=== PATIENT | male | born 1985 | race Two or more races ===

== ENCOUNTER 2018-09-13 17:16 | Emergency (ER) | payer OTHER ==
[~2018-09-13] VITALS: Ht 167.6 cm; Wt 115.7 kg
[~2018-09-13 17:16] MED LIST: AUGMENTIN 875-1 EAC1 ORAL; IBUPROFEN600 MG ORAL
[2018-09-13] MEDS ORDERED: IBUPROFEN800 MG ORAL (17:58)
[2018-09-13] MEDS ORDERED: ROBAXIN500 MG PO (17:58)
[2018-09-13] MEDS ORDERED: LIDOCAINE700 M1 TP (17:58)
--- NOTE | 2018-09-13 17:59 | Emergency Room Report ---
History of Present Illness General Chief Complaint: Lower Back Pain or Injury Source: Patient Present Illness HPI 33-year-old male patient presents the ER complaining of back pain times 1 day. Reports that he was at work earlier today when he was lifting a heavy package and began to experience mid back pain. Reports pain is worse with movement. Denies pain radiating down his legs. Denies pain radiating. Denies bowel or bladder incontinence. Denies acute injury or trauma. Reports able to ambulate without difficulty. Denies other aggravating or relieving factors. Denies fever, chest pain, shortness of breath. Denies abdominal pain. Denies history of drug use. Denies history of diabetes. Allergies: Coded Allergies: POLLEN EXTRACTS (Verified Allergy, Mild, 01/06/16) Patient History Past Medical History: see triage record Reviewed Nursing Documentation: PMH: Agreed; PSxH: Agreed Nursing Documentation-PMH Past Medical History: No Stated History Review of Systems All Other Systems: negative except mentioned in HPI Physical Exam Vital Signs Date Time Temp Pulse Resp B/P (MAP) Pulse Ox O2 Delivery O2 Flow Rate FiO2 09/13/18 17:22 98.4 90 20 117/72 99 Room Air Sp02 EP Interpretation: reviewed, normal General Appearance: well appearing, no apparent distress, alert, GCS 15, non- toxic Head: normocephalic, atraumatic Eyes: bilateral eye normal inspection, bilateral eye PERRL ENT: hearing grossly normal, normal pharynx, no angioedema, normal voice, uvula midline, moist mucus membranes Neck: full range of motion, no bony tend Respiratory: lungs clear, normal breath sounds, no rhonchi, no respiratory distress, no accessory muscle use, no wheezing, speaking full sentences Cardiovascular #1: regular rate, rhythm, no edema Gastrointestinal: non tender, soft, no mass, non-distended, no guarding, no rebound Musculoskeletal: back normal, digits/nails normal, gait/station normal, normal range of motion, non-tender Neurologic: alert, oriented x3, responsive, motor strength/tone normal, SLR negative, sensory intact, cerebellar normal, normal gait, speech normal Skin: no rash Medical Decision Making PA Attestation Dr. Marquez is my supervising Physician whom patient management has been discussed with. Diagnostic Impression: Primary Impression: Muscle strain ER Course Pt presents to ED c/o back pain. DDX considered but are not limited to sprain, strain, cauda equine, epidural abscess, AAA, herniated disc, msucular pain. Low suspicion for cauda equina, no bowel or bladder incontinence or retention. No fever, nontoxic appearing, no radiation of pain, low suspicion for epidural mass. No abdominal pain, no blood pressure elevation, nontoxic appearing, low suspicion for AAA. VITAL SIGNS are WNL, patient is afebrile ER COURSE: No spinous process tenderness, no bony depression, no history of injury or accident. Medication provided in the ER. Denies acute injury or accident, does not require x-ray at this time. Likely muscle strain causing pain symptoms. Offered x-ray to patient, patient declined. Follow-up with Workmen's Compensation physician to discuss further referral. Followup with pain management and/or PT. Request referral from PCP. Followup with PCP for further MRI and/or CT imaging as needed. DISCHARGE: -Rx provided for Motrin -Rx provided for Lidocaine patch -Rx provided for Robaxin. SE may cause drowsiness, do not take prior to drinking , driving, or operating [employer] machinery. At this time pt. is stable for d/c to home. At this time patient is resting comfortably, in no acute distress, nontoxic appearing, smiling and talking without difficulty. Will provide printed patient care instructions, and any necessary prescriptions. Patient instructed to follow with primary care provider for further treatment and referral as needed. Care plan and follow up instructions have been discussed with the patient prior to discharge. Patient reports understanding and agreement to treatment plan. Patient questions asked and answered. ER precautions given, patient instructed to return to ER immediately for any new or worsening of symptoms. - Please note that this Emergency Department Report was dictated using [employer] technology software, occasionally this can lead to erroneous entry secondary to interpretation by the dictation equipment. Last Vital Signs Date Time Temp Pulse Resp B/P (MAP) Pulse Ox O2 Delivery O2 Flow Rate FiO2 09/13/18 17:22 98.4 90 20 117/72 99 Room Air Status: improved Disposition: HOME, SELF-CARE Condition: Stable Scripts Ibuprofen* (MOTRIN*) 800 Mg Tablet 800 MG ORAL Q6H, #30 TAB 0 Refills Prov: Gaston Gar P.A. 09/13/18 Methocarbamol* (ROBAXIN*) 500 Mg Tablet 500 MG PO TID, #21 TAB 0 Refills Prov: Gaston Gar 09/13/18 Lidocaine (Lidocaine) 1 Each Adh..patch 5 % TP DAILY for 7 Days, #7 PATCH Prov: Gaston Gar 09/13/18 Patient Instructions: Low Back Sprain With Rehab[facility], Lumbosacral Strain , Muscle Strain, [id number] Additional Instructions: Patient instructed to follow up with primary care provider 3-5 and discuss further referral and imaging at that time. Patient instructed on rest, ice and heat. Do not take muscle relaxant prior to drinking, driving, or operating heavy machinery. Take medications as directed. Patient questions asked and answered. ER precautions given, patient instructed to return to ER immediately for any new or worsening of symptoms. [facility] [address] [facility] [address] [facility], [id number] [email or web address] Gaston Gar Sep 13, 2018 17:59
[2018-09-13] MEDS ORDERED: Methocarbamol 500mg tab ORAL ONE (18:00)
[2018-09-13] MEDS ORDERED: Ketorolac 30mg Inj IM ONE (18:00)
[2018-09-13 18:16] VITALS: BP_SYST 117; BP_SYST 121; BP_DIAS 72; BP_DIAS 82
== END 2018-09-13 18:20 | disposition home or self-care (01) ==
LOC: EMR 17:57
DX: T14.8XXA Other injury of unspecified body region, initial encounter (principal); X50.0XXA Overexertion from strenuous movement or load, initial encounter; Y92.9 Unspecified place or not applicable; M54.9 Dorsalgia, unspecified
CPT/HCPCS: 96372; 99283; J1885

== ENCOUNTER 2019-07-23 12:12 | Emergency (ER) | payer OTHER ==
[~2019-07-23] VITALS: Ht 167.6 cm; Wt 113.4 kg
[~2019-07-23 12:12] MED LIST changes: +IBUPROFEN800 MG ORAL; +LIDOCAINE700 M1 TP; +ROBAXIN500 MG PO
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
[2019-07-23] MEDS ORDERED: LIDODERM700 M1 TOPIC (13:14)
[2019-07-23] MEDS ORDERED: IBUPROFEN600 MG ORAL (13:14)
[2019-07-23] MEDS ORDERED: ROBAXIN-750750 MG PO (13:14)
[2019-07-23] MEDS ORDERED: Methocarbamol 750mg tab ORAL ONE (13:15)
--- NOTE | 2019-07-23 13:45 | NUR ---
ED Nurse Note: Pt cleared by health care Provider for discharge. DC instructions/prescription was given and explained to pt and verbalized understanding of teachings. All medical deviecs such as ID band removed. Pt is AAO x4, ambulatory and left with all personal belongings.pt given work comp paperwork and aware to f/u with employer for full clearance. amb steady out of ed.
[2019-07-23 13:46] VITALS: BP 111/69
== END 2019-07-23 13:46 | disposition home or self-care (01) ==
LOC: EMR 13:20
DX: M54.5 Low back pain (principal); M62.830 Muscle spasm of back; J45.909 Unspecified asthma, uncomplicated; Z91.048 Other nonmedicinal substance allergy status
CPT/HCPCS: 99283